=== PATIENT | female | born 1990 | race African-American/Black ===

== ENCOUNTER 2019-06-10 21:34 | Emergency (ER) | payer OTHER, SELFPAY ==
[2019-06-10] MEDS ORDERED: CYCLOBENZAPRINE 10 MG TAB ONE (23:22)
[2019-06-10] MEDS ORDERED: IBUPROFEN 400 MG TAB ONE (23:22)
[2019-06-10] MEDS ORDERED: ACETAMINOPHEN 325 MG TABLET ONE (23:22)
[2019-06-10 23:40] LABS: Urine Blood NEGATIVE (NEG); Urine Glucose NEGATIVE (NEG); Urine Protein NEGATIVE (NEG); Urine Specific Gravity 1.025 (1.005-1.030)
--- NOTE | 2019-06-10 23:46 | ER ---
Nurse's Notes [facility] Name: Elba Aragon Age: 29 yrs Sex: Female : 1990 Arrival Date: 06/10/2019 Time: 21:37 Bed 27 Private MD: Diagnosis: Other chest pain Presentation: 06/10 21:40 Presenting complaint: Pain to left back and left side that started an hour ago. Patient aj1 also reports shortness of breath, but states "I think that's just because I'm freaking out. I have a history of anxiety" Patient reports that she was carrying a car seat when the pain suddenly hit her. Transition of care: patient was not received from another setting of care. Onset of symptoms was June 10, 2019 at 20:45. Risk Assessment: Do you want to hurt yourself or someone else? Patient reports no desire to harm self or others. Initial Sepsis Screen: Does the patient meet any 2 criteria? No. Patient's initial sepsis screen is negative. Does the patient have a suspected source of infection? No. Patient's initial sepsis screen is negative. Care prior to arrival: None. 21:40 Method Of Arrival: Wheelchair aj1 21:40 Acuity: CELIA 4 aj1 Triage Assessment: 21:42 General: Appears uncomfortable, Behavior is cooperative, anxious. Pain: Complains of aj1 pain in left low back, left mid back and posterior aspect of left lateral abdomen. Neuro: Level of Consciousness is awake, alert, obeys commands. Cardiovascular: Patient's skin is warm and dry. Respiratory: Reports shortness of breath Airway is patent Respiratory effort is even, unlabored, Respiratory pattern is regular, symmetrical, Onset: The symptoms/episode began/occurred today, the patient reports symptoms have resolved. 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 - Social history:: Smoking status: Patient/guardian denies using tobacco. - Ebola Screening: : Patient denies travel to an Ebola-affected area in the 21 days before illness onset. Screenin:29 Abuse screen: Denies threats or abuse. Denies injuries from another. Nutritional mg2 screening: No deficits noted. Tuberculosis screening: No symptoms or risk factors identified. Fall Risk None identified. Assessment: 22:30 General: Appears in no apparent distress. comfortable, Behavior is calm, cooperative. mg2 Pain: Complains of pain in left mid back and left low back Pain does not radiate. Pain currently is 4 out of 10 on a pain scale. Quality of pain is described as aching, Pain began gradually, Is intermittent. Neuro: Level of Consciousness is awake, alert, obeys commands, Oriented to person, place, time, situation. Cardiovascular: Capillary refill < 3 seconds Patient's skin is warm and dry. Respiratory: Reports shortness of breath on exertion Airway is patent Respiratory effort is even, unlabored, Respiratory pattern is regular, symmetrical, Breath sounds are clear in mediastinum, right upper lobe and left upper lobe. GI: No signs and/or symptoms were reported involving the gastrointestinal system. : No signs and/or symptoms were reported regarding the genitourinary system. EENT: No signs and/or symptoms were reported regarding the EENT system. Derm: Skin is intact, is healthy with good turgor, Skin is pink, warm \\T\\ dry. normal. Musculoskeletal: Circulation, motion, and sensation intact. Capillary refill < 3 seconds, Reports pain in shoulder blade and left lateral area. 06/11 00:18 Cardiovascular: Rhythm is regular. mg2 Vital Signs: 06/10 21:42 BP 137 / 90; Pulse 82; Resp 18; Temp 97.7; Pulse Ox 100% on R/A; Weight 86.18 kg (R); aj1 Height 5 ft. 0 in. (152.40 cm) (R); Pain 10/10; 22:32 BP 116 / 83; Pulse 70; Resp 18; Pulse Ox 100% on R/A; mg2 06/11 00:17 BP 120 / 78; Pulse 71; Resp 18; Temp 98.5; Pulse Ox 100% on R/A; Pain 0/10; mg2 06/10 21:42 Body Mass Index 37.11 (86.18 kg, 152.40 cm) aj1 ED Course: 06/10 21:37 Patient arrived in ED. cl3 21:42 Triage completed. aj1 21:42 Arm band placed on. aj1 22:09 Enrique Zee, RN is Primary Nurse. mg2 22:32 Patient has correct armband on for positive identification. mg2 22:32 No provider procedures requiring assistance completed. Patient did not have IV access mg2 during this emergency room visit. 22:54 Guillaume Krishnamurthy PA is PHCP. cp 22:54 Vinny Edward MD is Attending Physician. cp 23:44 XRAY Chest Pa And Lat (2 Views) In Process Unspecified. EDMS Administered Medications: 23:26 Drug: Ibuprofen 800 mg Route: PO; 23:56 Follow up: Response: No adverse reaction; Marked relief of symptoms mg2 23:27 Drug: Tylenol 650 mg Route: PO; 23:55 Follow up: Response: No adverse reaction; Marked relief of symptoms mg2 23:27 Drug: Flexeril 10 mg Route: PO; 23:55 Follow up: Response: No adverse reaction; Marked relief of symptoms mg2 Outcome: 23:46 Discharge ordered by MD. cp 06/11 00:18 Discharged to home ambulatory, with family. mg2 Condition: stable Discharge instructions given to patient, family, Instructed on discharge instructions, follow up and referral plans. medication usage, Demonstrated understanding of instructions, follow-up care, medications, Prescriptions given X 2. 00:18 Patient left the ED. mg2 Signatures: Dispatcher [employer] EDMS Siri Petit RN RN aj1 Guillaume Krishnamurthy PA PA cp Sarah Prieto Enrique Zee, LULY RN mg2 Toro Rhodes cl3
--- NOTE | 2019-06-10 23:47 | EDPHYS ---
Physician Documentation [facility] Name: Elba Aragon Age: 29 yrs Sex: Female : 1990 Arrival Date: 06/10/2019 Time: 21:37 Bed 27 Private MD: ED Physician Vinny Edward HPI: 06/10 23:05 This 29 yrs old Black Female presents to ER via Wheelchair with complaints of Shortness cp Of Breath. 23:05 The patient or guardian reports chest pain that is located primarily in the left lower cp lateral chest wall. 23:05 The pain does not radiate. Associated signs and symptoms: Pertinent positives: cp shortness of breath. Duration: The patient or guardian reports a single episode, that is still ongoing. 23:05 The chest pain is described as aching. cp 23:05 Severity of pain: in the emergency department the pain is a 4 / 10. Patient reports she cp started having pain suddenly left lower lateral chest after picking up baby in car seat today. Pain worse with movement, deep inspiration. Denies trauma. 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 - Social history:: Smoking status: Patient/guardian denies using tobacco. - Ebola Screening: : Patient denies travel to an Ebola-affected area in the 21 days before illness onset. ROS: 23:10 Constitutional: Negative for body aches, chills, fever, poor PO intake. cp 23:10 Eyes: Negative for injury, pain, redness, and discharge. cp 23:10 Cardiovascular: Positive for chest pain, of the left lower lateral chest, Negative for cp edema, palpitations. 23:10 Neck: Negative for pain with movement, pain at rest, stiffness, tenderness. cp 23:10 Respiratory: Positive for shortness of breath, Negative for cough, wheezing. 23:10 Abdomen/GI: Negative for nausea, vomiting, and diarrhea, constipation. 23:10 Back: Positive for radiated pain. 23:10 : Negative for urinary symptoms. 23:10 Skin: Negative for rash. 23:10 Neuro: Negative for altered mental status, headache, numbness, weakness. 23:10 All other systems are negative. Exam: 23:20 Constitutional: The patient appears in no acute distress, alert, awake, cp non-diaphoretic, non-toxic, well developed, well nourished. 23:20 Head/Face: Normocephalic, atraumatic. cp 23:20 Eyes: Periorbital structures: appear normal, Conjunctiva: normal, no exudate, no cp injection, Lids and lashes: appear normal, bilaterally. 23:20 ENT: External ear(s): are unremarkable, Nose: is normal, Mouth: is normal, Posterior cp pharynx: Airway: no evidence of obstruction, patent. 23:20 Neck: ROM/movement: is normal, is supple, without pain, no range of motions limitations, no nuchal rigidity. 23:20 Chest/axilla: Inspection: normal, Palpation: crepitus, is not appreciated, tenderness, that is moderate, of the left lower lateral chest wall, that partially reproduces the patient's complaints. 23:20 Cardiovascular: Rate: normal, Rhythm: regular, Edema: is not appreciated, JVD: is not appreciated. 23:20 Respiratory: the patient does not display signs of respiratory distress, Respirations: labored breathing, is not present, intercostal retractions, are absent, shallow respirations, that is mild, Breath sounds: are clear throughout, no decreased breath sounds, no stridor, no wheezing. 23:20 Abdomen/GI: Inspection: abdomen appears normal, Palpation: abdomen is soft and non-tender, in all quadrants. 23:20 Skin: no rash present. 23:20 Neuro: Orientation: to person, place \T\ time. Mentation: is normal, Motor: moves all fours, strength is normal. Vital Signs: 21:42 BP 137 / 90; Pulse 82; Resp 18; Temp 97.7; Pulse Ox 100% on R/A; Weight 86.18 kg (R); aj1 Height 5 ft. 0 in. (152.40 cm) (R); Pain 10/10; 22:32 BP 116 / 83; Pulse 70; Resp 18; Pulse Ox 100% on R/A; mg2 06/11 00:17 BP 120 / 78; Pulse 71; Resp 18; Temp 98.5; Pulse Ox 100% on R/A; Pain 0/10; mg2 06/10 21:42 Body Mass Index 37.11 (86.18 kg, 152.40 cm) aj1 MDM: 06/10 22:58 Patient medically screened. cp 23:30 Differential diagnosis: chest wall pain, cholecystitis, Cholelithiasis costochondritis, cp pleurisy, pneumonia, pneumothorax, pulmonary embolus, intercostal strain. 23:45 Data reviewed: vital signs, nurses notes, radiologic studies, plain films. cp 23:45 Test interpretation: by ED physician or midlevel provider: plain radiologic studies, cp chest xray negative for infiltrates. Counseling: I had a detailed discussion with the patient and/or guardian regarding: the historical points, exam findings, and any diagnostic results supporting the discharge/admit diagnosis, radiology results, the need for outpatient follow up, a family practitioner, to return to the emergency department if symptoms worsen or persist or if there are any questions or concerns that arise at home. 06/10 23:35 Order name: Urine Dipstick--Ancillary (enter results); Complete Time: 23:44 em1 06/10 23:35 Order name: Urine --Ancillary (enter results); Complete Time: 23:44 em1 06/10 23:03 Order name: XRAY Chest Pa And Lat (2 Views) cp 06/10 23:03 Order name: Urine Dipstick-Ancillary (obtain specimen); Complete Time: 23:27 cp 06/10 23:03 Order name: Urine Test (obtain specimen); Complete Time: 23:27 cp Administered Medications: 23:26 Drug: Ibuprofen 800 mg Route: PO; 23:56 Follow up: Response: No adverse reaction; Marked relief of symptoms mg2 23:27 Drug: Tylenol 650 mg Route: PO; 23:55 Follow up: Response: No adverse reaction; Marked relief of symptoms mg2 23:27 Drug: Flexeril 10 mg Route: PO; 23:55 Follow up: Response: No adverse reaction; Marked relief of symptoms mg2 Disposition: 06/11 07:02 Co-signature as Attending Physician, Vinny Edward MD I agree with the assessment and tw4 plan of care. Disposition: 06/10/19 23:46 Discharged to Home. Impression: Other chest pain. - Condition is Stable. - Discharge Instructions: Chest Wall Pain. - Prescriptions for Naprosyn 500 mg Oral Tablet - take 1 tablet by ORAL route 2 times per day take with food; 30 tablet. Cyclobenzaprine 10 mg Oral Tablet - take 1 tablet by ORAL route every 8 hours As needed; 20 tablet. - Medication Reconciliation Form, Thank You Letter, Antibiotic Education, Prescription Opioid Use form. - Follow up: Private Physician; When: 1 - 2 days; Reason: Recheck today's complaints. - Problem is new. - Symptoms have improved. Signatures: Dispatcher [employer] EDSiri Rodríguez RN RN aj1 Guillaume Krishnamurthy PA PA Sarah Orozco Terrence, MD MD tw4 Enrique Zee RN RN mg2 Corrections: (The following items were deleted from the chart) 00:18 06/10 23:46 06/10/2019 23:46 Discharged to Home. Impression: Other chest pain. mg2 Condition is Stable. Forms are Medication Reconciliation Form, Thank You Letter, Antibiotic Education, Prescription Opioid Use. Follow up: Private Physician; When: 1 - 2 days; Reason: Recheck today's complaints. Problem is new. Symptoms have improved. cp
[2019-06-11 01:31] VITALS: O2SAT 100
[2019-06-11 01:35] VITALS: BP 120/78; TEMP 98.5
--- NOTE | 2019-06-11 09:18 | RAD REPORT ---
EXAM DESCRIPTION: RAD - Chest Pa And Lat (2 Views) - 06/10/2019 11:43 pm CLINICAL HISTORY: CHEST PAIN COMPARISON: None. TECHNIQUE: PA and lateral views of the chest were obtained. FINDINGS: The lungs are clear. Heart size is normal and central vasculature is within normal limit s. No pleural effusion or pneumothorax seen. No acute bony finding noted. No aortic abnormality. IMPRESSION: No acute cardiopulmonary process.
== END 2019-06-11 00:18 | disposition home or self-care (01) ==
LOC: ER 21:34
DX: R07.89 Other chest pain (principal)
CPT/HCPCS: 71046; 81003; 81025; 99283

== ENCOUNTER 2020-07-08 20:03 | Emergency (ER) | payer SELFPAY ==
[2020-07-08] MEDS ORDERED: KETOROLAC 30 MG/ML INJ ONE (20:36)
[2020-07-08 20:47] LABS: Absolute Lymphocytes (CBC) 4.8 K/uL (0.7-4.9); Basophils % 1.4 % (0-1.3); Hematocrit 36.4 % (36.0-45.0); Lymphocytes % 38.9 % (15.3-44.8); MPV 8.9 fL (7.6-11.3)
[2020-07-08 20:57] LABS: ALT/SGPT 23 U/L (12-78); AST/SGOT 11 U/L (15-37); Albumin 3.3 g/dL (3.4-5.0); Alkaline Phosphatase 74 U/L (45-117); BUN Blood Urea Nitrogen 12 mg/dL (7-18); Bicarbonate 26 mmol/L (21-32); Bilirubin Direct < 0.1 mg/dL (0-0.2); Bilirubin Total 0.2 mg/dL (0.2-1.0); Glucose Level 92 mg/dL (74-106); Lipase 112 U/L (73-393); Potassium 3.8 mmol/L (3.5-5.1); Protein, Total 7.7 g/dL (6.4-8.2); Sodium Level 140 mmol/L (136-145)
--- NOTE | 2020-07-08 22:34 | ER ---
Nurse's Notes [facility] Name: Elba Aragon Age: 30 yrs Sex: Female : 1990 Arrival Date: 07/08/2020 Time: 20:04 Bed 6 Private MD: Diagnosis: Upper abdominal pain, unspecified Presentation: 07/08 20:12 Chief complaint: Patient states: Epigastric/RUQ abd pain for 1 day. Coronavirus screen: ll1 Client denies travel out of the [place] in the last 14 days. At this time, the client does not indicate any symptoms associated with coronavirus-19. Ebola Screen: Patient denies travel to an Ebola-affected area in the 21 days before illness onset. Initial Sepsis Screen: Does the patient meet any 2 criteria? RR > 20 per min. No. Patient's initial sepsis screen is negative. Does the patient have a suspected source of infection? Yes: Acute abdominal pain. Risk Assessment: Do you want to hurt yourself or someone else? Patient reports no desire to harm self or others. Onset of symptoms was July 08, 2020. 20:12 Method Of Arrival: Ambulatory [facility] 20:12 Acuity: CELIA 3 ll1 Historical: - Allergies: 20:13 No Known Allergies; ll1 - PSHx: 20:13 None; ll1 - Immunization history:: Flu vaccine is not up to date. - Social history:: Smoking status: Patient denies any tobacco usage or history of. Screenin:34 Abuse screen: Denies threats or abuse. Nutritional screening: No deficits noted. jb4 Tuberculosis screening: No symptoms or risk factors identified. Fall Risk None identified. Assessment: 20:34 General: Appears in no apparent distress. uncomfortable, Behavior is calm, cooperative, jb4 appropriate for age. Pain: Complains of pain in right upper quadrant Pain does not radiate. Pain currently is 7 out of 10 on a pain scale. Quality of pain is described as burning, Pain began 1330 Is continuous. Neuro: Level of Consciousness is awake, alert, obeys commands, Oriented to person, place, time, situation. Cardiovascular: Patient's skin is warm and dry. Respiratory: Airway is patent Respiratory effort is even, unlabored, Respiratory pattern is regular, symmetrical. GI: Abdomen is non-distended, obese, Bowel sounds present X 4 quads. Abd is soft and non tender X 4 quads. : No signs and/or symptoms were reported regarding the genitourinary system. EENT: No signs and/or symptoms were reported regarding the EENT system. Derm: Skin is intact, Skin is dry, Skin is normal, Skin temperature is warm. Musculoskeletal: Circulation, motion, and sensation intact. Range of motion: intact in all extremities. 21:25 Reassessment: Patient appears in no apparent distress at this time. Patient and/or jb4 family updated on plan of care and expected duration. Pain level reassessed. Patient is alert, oriented x 3, equal unlabored respirations, skin warm/dry/pink. Pt is back from CT Patient states feeling better. Vital Signs: 20:12 BP 145 / 85; Pulse 82; Resp 22; Temp 97.8; Pulse Ox 100% ; Weight 86.18 kg; Height 5 ll1 ft. 0 in. (152.40 cm); Pain 9/10; 21:25 BP 113 / 76; Pulse 68; Resp 18; Pulse Ox 100% on R/A; Pain 0/10; jb4 22:24 BP 123 / 80; Pulse 66; Resp 16; Pulse Ox 100% ; Pain 0/10; rv 20:12 Body Mass Index 37.11 (86.18 kg, 152.40 cm) ll1 ED Course: 20:04 Patient arrived in ED. cl3 20:05 Dor[facility] Angel [facility]C [facility] kb 20:05 Guillaume Root MD is Attending Physician. kb 20:13 Triage completed. ll1 20:13 Arm band placed on Patient placed in an exam room, on a stretcher. ll1 20:27 Inserted saline lock: 22 gauge in right antecubital area, using aseptic technique. ds4 Blood collected. 20:28 Kevin Tompkins, LULY is Primary Nurse. jb4 20:34 Patient has correct armband on for positive identification. Bed in low position. Call jb4 light in reach. Side rails up X 1. Pulse ox on. NIBP on. 20:49 US Abdomen Limited In Process Unspecified. EDMS 21:14 CT Abd/Pelvis - IV Contrast Only In Process Unspecified. EDMS 22:42 No provider procedures requiring assistance completed. IV discontinued, intact, rv bleeding controlled, No redness/swelling at site. Pressure dressing applied. Administered Medications: 20:34 Drug: TORadol - Ketorolac 15 mg Route: IVP; Site: right antecubital; jb4 22:25 Follow up: Response: No adverse reaction; Pain is decreased rv Outcome: 22:34 Discharge ordered by . bernadette 22:42 Discharged to home ambulatory. rv 22:42 Condition: improved 22:42 Discharge instructions given to patient, Instructed on discharge instructions, follow up and referral plans. medication usage, Demonstrated understanding of instructions, follow-up care, medications, Prescriptions given X 3. 22:42 Patient left the ED. rv Signatures: Dispatcher [employer] EDMS Dorcas Angel, COAT IRONER HAND-C COAT IRONER HAND-Ckb Gabe Elkins ds4 Kevin Tompkins, RN RN jb4 Franck Lindsay, RN RN Toro Gibson cl3 Tati Rhodes RN RN ll1 Corrections: (The following items were deleted from the chart) 20:33 20:30 Inserted saline lock: 22 gauge in right antecubital area, using aseptic ds4 technique. Blood collected. ds4
--- NOTE | 2020-07-08 22:35 | EDPHYS ---
Physician Documentation [facility] Name: Elba Aragon Age: 30 yrs Sex: Female : 1990 Arrival Date: 07/08/2020 Time: 20:04 Bed 6 Private MD: MILAGROS Physician Guillaume Root HPI: 07/08 20:40 This 30 yrs old Black Female presents to ER via Ambulatory with complaints of Abdominal kb Pain. 20:40 The patient presents with abdominal pain in the right upper quadrant. Onset: The kb symptoms/episode began/occurred today. The symptoms do not radiate. Associated signs and symptoms: none. The symptoms are described as constant. Modifying factors: The symptoms are alleviated by nothing, the symptoms are aggravated by nothing. Severity of pain: At its worst the pain was moderate in the emergency department the pain is unchanged. The patient has not experienced similar symptoms in the past. The patient has not recently seen a physician. Pt reports RUQ pain that started at 1330 today. Historical: - Allergies: 20:13 No Known Allergies; ll1 - PSHx: 20:13 None; ll1 - Immunization history:: Flu vaccine is not up to date. - Social history:: Smoking status: Patient denies any tobacco usage or history of. ROS: 20:38 Constitutional: Negative for fever, chills, and weight loss, Cardiovascular: Negative kb for chest pain, palpitations, and edema, Respiratory: Negative for shortness of breath, cough, wheezing, and pleuritic chest pain, Back: Negative for injury and pain, MS/Extremity: Negative for injury and deformity, Skin: Negative for injury, rash, and discoloration, Neuro: Negative for headache, weakness, numbness, tingling, and seizure. 20:38 Abdomen/GI: Positive for abdominal pain, Negative for nausea, vomiting, and diarrhea, constipation, abdominal cramps, abdominal distension, anorexia. Exam: 20:38 Constitutional: This is a well developed, well nourished patient who is awake, alert, kb and in no acute distress. Head/Face: Normocephalic, atraumatic. Chest/axilla: Normal chest wall appearance and motion. Nontender with no deformity. No lesions are appreciated. Cardiovascular: Regular rate and rhythm with a normal S1 and S2. No gallops, murmurs, or rubs. Normal PMI, no JVD. No pulse deficits. Respiratory: Lungs have equal breath sounds bilaterally, clear to auscultation and percussion. No rales, rhonchi or wheezes noted. No increased work of breathing, no retractions or nasal flaring. Back: No spinal tenderness. No costovertebral tenderness. Full range of motion. Skin: Warm, dry with normal turgor. Normal color with no rashes, no lesions, and no evidence of cellulitis. MS/ Extremity: Pulses equal, no cyanosis. Neurovascular intact. Full, normal range of motion. Neuro: Awake and alert, GCS 15, oriented to person, place, time, and situation. Cranial nerves II-XII grossly intact. Motor strength 5/5 in all extremities. Sensory grossly intact. Cerebellar exam normal. Normal gait. 20:38 Abdomen/GI: Inspection: abdomen appears normal, Bowel sounds: normal, in all quadrants, Palpation: soft, in all quadrants, moderate abdominal tenderness, in the right upper quadrant. Vital Signs: 20:12 BP 145 / 85; Pulse 82; Resp 22; Temp 97.8; Pulse Ox 100% ; Weight 86.18 kg; Height 5 ll1 ft. 0 in. (152.40 cm); Pain 9/10; 21:25 BP 113 / 76; Pulse 68; Resp 18; Pulse Ox 100% on R/A; Pain 0/10; jb4 22:24 BP 123 / 80; Pulse 66; Resp 16; Pulse Ox 100% ; Pain 0/10; rv 20:12 Body Mass Index 37.11 (86.18 kg, 152.40 cm) ll1 MDM: 20:06 Patient medically screened. kb 20:37 Data reviewed: vital signs, nurses notes. Data interpreted: Pulse oximetry: on room air kb is 100 %. Interpretation: normal. 20:59 Counseling: I had a detailed discussion with the patient and/or guardian regarding: the kb historical points, exam findings, and any diagnostic results supporting the discharge/admit diagnosis, lab results, radiology results, the need for outpatient follow up, a family practitioner, to return to the emergency department if symptoms worsen or persist or if there are any questions or concerns that arise at home. 22:37 Special discussion: I discussed with the patient the need to follow-up with the PCP/specialist for the noted incidental finding on X-ray/CT scanning. 11/03 20:12 Order name: Basic Metabolic Panel; Complete Time: 20:59 kb 07/08 20:12 Order name: CBC with Diff; Complete Time: 20:52 kb 07/08 20:12 Order name: Hepatic Function; Complete Time: 20:59 kb 07/08 20:12 Order name: Lipase; Complete Time: 20:59 kb 07/08 20:12 Order name: US Abdomen Limited kb 07/08 21:00 Order name: CT Abd/Pelvis - IV Contrast Only kb 07/08 20:12 Order name: IV Saline Lock; Complete Time: 20:32 kb 07/08 20:12 Order name: Labs collected and sent; Complete Time: 20:32 kb Administered Medications: 20:34 Drug: TORadol - Ketorolac 15 mg Route: IVP; Site: right antecubital; jb4 22:25 Follow up: Response: No adverse reaction; Pain is decreased rv Disposition: 07/09 09:49 Co-signature as Attending Physician, Guillaume Root MD I agree with the assessment and lino plan of care. Disposition: 07/08/20 22:34 Discharged to Home. Impression: Upper abdominal pain, unspecified. - Condition is Stable. - Discharge Instructions: Biliary Colic, Adult, Abdominal Pain, Adult, [id number]. - Prescriptions for Bentyl 20 mg Oral Tablet - take 1 tablet by ORAL route every 6 hours As needed; 20 tablet. Protonix 40 mg Oral Tablet - take 1 tablet by ORAL route once daily; 30 tablet. Zofran 4 mg Oral Tablet - take 1 tablet by ORAL route every 6 hours As needed; 20 tablet. - Medication Reconciliation Form, Thank You Letter, Antibiotic Education, Prescription Opioid Use form. - Follow up: Emergency Department; When: As needed; Reason: Worsening of condition. Follow up: Private Physician; When: 2 - 3 days; Reason: Recheck today's complaints, Continuance of care, Re-evaluation by your physician. Signatures: Dispatcher [employer] EDDorcas Ponce, ASHLYN-C CUBING MACHINE TENDER-Guillaume Catalan MD MD cha Bryson, James, RN RN jb4 Franck Lindsay RN RN rv Tati Rhodes RN RN ll1 Corrections: (The following items were deleted from the chart) 07/08 22:42 22:34 07/08/2020 22:34 Discharged to Home. Impression: Upper abdominal pain, rv unspecified. Condition is Stable. Forms are Medication Reconciliation Form, Thank You Letter, Antibiotic Education, Prescription Opioid Use. Follow up: Emergency Department; When: As needed; Reason: Worsening of condition. Follow up: Private Physician; When: 2 - 3 days; Reason: Recheck today's complaints, Continuance of care, Re-evaluation by your physician. kb
[2020-07-08 22:49] VITALS: TEMP 97.8; O2SAT 100
[2020-07-08 22:52] VITALS: BP 123/80
--- NOTE | 2020-07-09 07:09 | RAD REPORT ---
EXAM DESCRIPTION: US - Abdomen Exam Limited - 07/08/2020 8:48 pm CLINICAL HISTORY: ABD PAIN COMPARISON: No comparisons FINDINGS: Gallbladder is tightly contracted. Patient was not fasting for the examination. Contracted state accentuates wall thickness. No stones or sludge identifiable. No pericholecystic fluid. Wall e brenda is not suspected. No common duct stone or biliary tree dilatation identified. Preliminary findings provided at the time of the study. IMPRESSION: Negative gallbladder and biliary tree finding and patient was not fasting. Gallbladder lumen assessment is limited; however, no abnormality seen and none suspected.
--- NOTE | 2020-07-09 12:28 | RAD REPORT ---
EXAM DESCRIPTION: CT - Abdomen Pelvis W Contrast - 07/09/2020 5:53 am CLINICAL HISTORY: 30-year-old female with abdominal pain. COMPARISON: None. TECHNIQUE: CT of the abdomen and pelvis was performed following intravenous administration of contra st. Oral contrast was not administered. Multiplanar reformatted images were provided. This exam was p erformed according to our departmental dose optimization program which includes use of automated expo sure control, adjustment of the mA and/or kV according to patient size and/or use of iterative recons truction technique. FINDINGS: Chest: Evaluation through the lung bases reveals no focal opacity, pleural effusion or pne umothorax. Small rounded subpleural pulmonary nodule is identified at the level of the lateral RIGHT lower lobe measuring 4 mm, (series 501, image three). Heart size is within normal limits. No pericard ial effusion. Abdomen and pelvis: The liver, gallbladder, pancreas, spleen, bilateral kidneys and bilateral adrenal glands are within normal limits. The vessels are patent and normal in caliber. No abdominopelvic lymph nodes are noted to be pathologically enlarged by CT measurement criteria. The bowel is within normal limits without abnormal bowel wall thickness or bowel dilation. No free air. No free abdominopelvic fluid collections. The appendix is within normal limits. The osseous structures are within normal limits. IMPRESSION: 1. No specific acute intra-abdominal findings are noted to suggest etiology of the patie nt's abdominal pain. 2. 4 mm subpleural pulmonary nodule. Electronically signed by: Genevieve Galan MD 07/08/2020 10:23 PM DIE CASTER Due to temporary technical issues with the PACS/Fluency reporting system, reports are being signed by the in house radiologists without review as a courtesy to insure prompt reporting. The interpreting radiologist is fully responsible for the content of the report.
== END 2020-07-08 22:42 | disposition home or self-care (01) ==
LOC: ER 20:03
DX: R10.11 Right upper quadrant pain (principal)
CPT/HCPCS: 36415; 74177; 76705; 80048; 80076; 83690; 85025; 96374; 99284; Q9967

== ENCOUNTER 2022-03-11 10:58 | Emergency (ER) | payer SELFPAY ==
--- NOTE | 2022-03-11 13:43 | ER ---
Nurse's Notes [facility] Name: Elba Aragon Age: 32 yrs Sex: Female : 1990 Arrival Date: 03/11/2022 Time: 11:02 Bed Waiting Private MD: Diagnosis: Presentation: 03/11 11:24 Chief complaint: Patient states: Abd pain/ cramping with diarrhea that began initially. ss Coronavirus screen: Client denies travel out of the [place] in the last 14 days. Ebola Screen: Patient denies exposure to infectious person. Patient denies travel to an Ebola-affected area in the 21 days before illness onset. Initial Sepsis Screen: Does the patient meet any 2 criteria? No. Patient's initial sepsis screen is negative. Does the patient have a suspected source of infection? No. Patient's initial sepsis screen is negative. Risk Assessment: Do you want to hurt yourself or someone else? Patient reports no desire to harm self or others. Onset of symptoms was March 11, 2022. 11:24 Method Of Arrival: Ambulatory ss 11:24 Acuity: CELIA 3 Historical: - Allergies: 11:25 No Known Allergies; ss - Home Meds: 11:25 None [Active]; ss - PMHx: 11:25 None; ss - PSHx: 11:25 None; ss - Immunization history:: Client reports having NOT received the Covid vaccine. - Social history:: Smoking status: Patient denies any tobacco usage or history of. Assessment: 13:21 [facility] Unable to locate patient. 13:40 Reassessment: Called to exam room. No answer. Unable to locate patient. ER registration ss staff reports that patient was seen walking out of ER with steady gait. NAD. Vital Signs: 11:24 BP 107 / 88; Pulse 83; Resp 16; Temp 98.1(TE); Pulse Ox 100% ; Weight 86.18 kg; Height ss 5 ft. 0 in. (152.40 cm); Pain 7/10; 11:24 Body Mass Index 37.11 (86.18 kg, 152.40 cm) ED Course: 11:02 Patient arrived in ED. rg4 11:13 Guillaume Toro DO is Attending Physician. ms3 11:25 Triage completed. ss 11:25 Arm band placed on right wrist. ss Administered Medications: No medications were administered Outcome: 13:41 Eloped from waiting room, after seeing physician ss 13:43 Patient left the ED. Signatures: Scarlet Dalton RN RN Bebe Enrique rg4 Guillaume Toro, DO TAYLOR ms3
[2022-03-11 15:12] VITALS: BP 107/88; TEMP 98.1; O2SAT 100
== END 2022-03-11 13:43 | disposition left against medical advice (07) ==
LOC: ER 10:58
DX: R10.9 Unspecified abdominal pain (principal); R19.7 Diarrhea, unspecified

== ENCOUNTER 2024-08-30 22:28 | Emergency (ER) | payer SELFPAY ==
--- OUTSIDE RECORDS SUMMARY | 2024-08-30 22:31 | XMS REPORT | Continuity of Care Document ---
Author Name Unknown Address [address] [facility] [address] [place] [address] [facility] thconnect Address [address] [facility]. 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 Role Phone PCP, PATIENT DOES NOT HAVE A Primary Care Physic alex Unavailable Sushila Danielle Attending Clinician + SUSHILA ROCHA Attending Clinician Unava ilable Unknown, Attending Attending Clinician Unavailab le Doctor Unassigned, [place] Attending Clinician U navailable Problems Condition Name Condition Details Condition Category Status Onset Date Resolution Date Last Treatment Date Treating Clinician Comments Source No known active problems No known active problems Disease [facility] Allergies, Adverse Reactions, Alerts Allergy Name Allergy Type Status Severity Reaction(s) Onset Date Inactive Date Treating Clinician Comments Source Penicill ins - CLASS Propensi ty to adverse reaction to drug Active 02-03 00:00: 00 Mario White NO KNOWN ALLERGIE S Drug Class Active [facility] Social History Social Habit Start Date Stop Date Quantity Comments Source Exposure to SARS-CoV-2 (event) Not sure [facility] Tobacco use and exposure 2021-08-25 00:00:00 2021-08-25 00:00:00 Never used [facility] Alcohol intake 2021-08-25 00:00:00 2021-08-25 00:00:00 Lifetime non-drinker (finding) [facility] Sex Assigned At 1990 00:00:00 1990 00:00:00 [facility] Smoking Status Start Date Stop Date Source Unknown if ever smoked [facility] Never smoker [facility] Medications Ordered Medication Name Filled Medication Name Start Date Stop Date Current Medication? Ordering Clinician Indication Dosage Frequency Signature (SIG) Comments Components Source montelukast 10 mg tablet 2023-09 00:00: 00 Yes 1mg Mario White triamcinolo ne acetonide 0.5 % topical cream 06-01 00:00: 00 Yes 1% Mario White cetirizine 10 mg tablet 06-01 00:00: 00 Yes 1mg Mario White TAKE 10 ML EVERY 4-6 HOURS NEEDED FOR COUGH AND CONGESTION 2022-09 00:00: 00 Yes [id number] Mario White USE 2 SPRAYS IN EACH NOSTRIL ONCE DAILY 2022-09 00:00: 00 Yes 50 Mario White naproxen 500 mg tablet 2020-09 00:00: 00 Yes [id number] 500mg Take 1 tablet by mouth every 8 (eight) hours as needed for Pain (scale 4-6). [facility] Vital Signs Vital Name Observation Time Observation Value Comments S ource Systolic blood pressure 2021-08-26 01:04:00 147 mm[Hg] [facility] Diastolic blood pressure 2021-08-26 01:04:00 88 mm[Hg] [facility] Heart rate 2021-08-26 01:02:00 73 /min [facility] Body temperature 2021-08-26 01:02:00 37.22 [facility] Respiratory rate 2021-08-26 01:02:00 18 /min [facility] Body height 2021-08-26 01:02:00 152.4 cm [facility] Body weight 2021-08-26 01:02:00 89.631 kg [facility] BMI 2021-08-26 01:02:00 38.59 kg/m2 [facility] Oxygen saturation in Arterial blood by Pulse oximetry 2021-08-26 01:02:00 99 /min [facility] BP Systolic 2024-08-17 14:32:00 135 mm[Hg] Step hen F Christopher BP Diastolic 2024-08-17 14:32:00 83 mm[Hg] Koko phen F Christopher Weight Measured 2024-08-17 14:32:00 207.00 pounds Mario F Christopher Height Measured 2024-08-17 14:32:00 60.00 inches Mario F Christopher Body Temperature 2024-08-17 14:32:00 98.20 degrees Mario F Christopher Heart Rate 2024-08-17 14:32:00 88.00 /min Valerie en F Christopher Respiratory Rate 2024-08-17 14:32:00 18.00 /min Mario F Christopher BP Systolic 2024-08-10 15:01:00 157 mm[Hg] Step hen F Christopher BP Diastolic 2024-08-10 15:01:00 90 mm[Hg] Koko phen F Christopher Weight Measured 2024-08-10 15:01:00 205.00 pounds Mario F Christopher Height Measured 2024-08-10 15:01:00 60.00 inches Mario F Christopher Body Temperature 2024-08-10 15:01:00 98.60 degrees Mario F Christopher Heart Rate 2024-08-10 15:01:00 75.00 /min Valerie en F Christopher Respiratory Rate 2024-08-10 15:01:00 Mario F Christopher Heart Rate 2024-07-27 14:28:00 74.00 /min Valerie en F Christopher Respiratory Rate 2024-07-27 14:28:00 16.00 /min Mario F Christopher BP Systolic 2024-07-27 14:28:00 125 mm[Hg] Step hen F Chrisotpher BP Diastolic 2024-07-27 14:28:00 84 mm[Hg] Koko phen F Christopher Weight Measured 2024-07-27 14:28:00 201.80 pounds Mario F Christopher Height Measured 2024-07-27 14:28:00 60.00 inches Mario F Christopher Body Temperature 2024-07-27 14:28:00 98.40 degrees Mario F Christopher Weight Measured 2024-06-01 15:57:00 196.00 pounds Mario F Christopher Height Measured 2024-06-01 15:57:00 60.00 inches Mario F Christopher Body Temperature 2024-06-01 15:57:00 97.90 degrees Mario F Christopher Heart Rate 2024-06-01 15:57:00 75.00 /min Valerie en F Christopher Respiratory Rate 2024-06-01 15:57:00 16.00 /min Mario F Christopher BP Systolic 2024-06-01 15:57:00 130 mm[Hg] Step hen F Christopher BP Diastolic 2024-06-01 15:57:00 85 mm[Hg] Koko phen F Christopher BP Systolic 2023-07-07 08:44:00 127 mm[Hg] Step hen F Christopher BP Diastolic 2023-07-07 08:44:00 77 mm[Hg] Koko phen F Christopher Weight Measured 2023-07-07 08:44:00 198.00 pounds Mario F Christopher Height Measured 2023-07-07 08:44:00 60.00 inches Mario F Christopher Body Temperature 2023-07-07 08:44:00 97.40 degrees Mario F Christopher Heart Rate 2023-07-07 08:44:00 83.00 /min Valerie en F Christopher Respiratory Rate 2023-07-07 08:44:00 Mario F Christopher BP Systolic 2023-02-03 14:06:00 138 mm[Hg] Step hen F Christopher BP Diastolic 2023-02-03 14:06:00 93 mm[Hg] Koko phen F Christopher Weight Measured 2023-02-03 14:06:00 198.80 pounds Mario F Christopher Height Measured 2023-02-03 14:06:00 60.00 inches Mario F Christopher Body Temperature 2023-02-03 14:06:00 98.40 degrees Mario F Christopher Heart Rate 2023-02-03 14:06:00 70.00 /min Valreie en F Christopher Respiratory Rate 2023-02-03 14:06:00 Mario F Christopher Encounters Start Date/Time End Date/Time Encounter Type Admission Type Attending [facility] Facility Care Department Encounter ID Source 2024-08-17 14:23:27 2024-08-17 14:23:27 Outpatient [facility] [id number] Mario F Christopher 2024-08-17 00:00:00 2024-08-17 00:00:00 Outpatient Visit [facility] [id number] Mario White 2024-08-10 00:00:00 2024-08-10 00:00:00 Outpatient Visit [facility] [id number] Mario White 2024-07-27 14:18:46 2024-07-27 14:18:46 Outpatient [facility] [id number] Mario White 2024-07-27 00:00:00 2024-07-27 00:00:00 Outpatient Visit [facility] [id number] Mario White 2024-06-08 16:13:17 2024-06-08 16:13:17 Outpatient [facility] [id number] Mario White 2024-06-01 15:47:38 2024-06-01 15:47:38 Outpatient [facility] [id number] Mario White 2024-06-01 00:00:00 2024-06-01 00:00:00 Outpatient Visit [facility] [id number] Mario White 2023-07-07 08:35:03 2023-07-07 08:35:03 Outpatient [facility] [id number] Mario White 2023-02-03 13:57:06 2023-02-03 13:57:06 Outpatient [facility] [id number] Mario White 2021-08-25 19:45:21 2021-08-25 23:59:00 Hospital Encounter Sushila Stephens [facility] [id number] [facility] 2021-08-25 19:00:00 2021-08-25 20:49:08 Outpatient R SUSHILA STEPHENS [facility] [id number] [facility] 2021-08-25 19:00:00 2021-08-25 20:49:08 Urgent Care Sushila Stephens Unknown, Attending [facility] [id number] [facility] 2021-08-25 00:00:00 2021-08-25 00:00:00 Letter (Out) Doctor Unassigned, [place] [facility] [id number] [facility] Results Test Description Test Time Test Comments Results Result Co mments Source PAP TEST, THINPREP, IMAGED REFLEX HPV HIGH RISK IF [id number] 00:00:00* Test Item Value Reference Range Interpretation Comme nts SOURCE: (test code = 8001) Unspecified SLIDES: (test code = 8011) 1 LMP: (test code = 8021) NOT GIVEN SPECIMEN ADEQUACY: (test code = 86122) (NOTE) INTERPRETATION: (test code = 09632) NILM/NO EPITH. ABNORMALITY;SEE BELOW BROACH GRINDER: (test code = 8101) SISI Galloway (ASCP) LOCATION: (test code = 59104) (NOTE) CPT: (test code = 8140) 31684 HPV HIGH RISK IF ASC/LSIL, THINPREP (test code = 68770) CRITERIA NOT MET PDFE (test code = PDFReport) PDF Mario WhiteCOMPREHENSIVE METABOLIC [id number] 06:18:51* Test Item Value Reference Range Interpretation Comme nts GLUCOSE (test code = 2217) 86 MG/DL 70-99 BUN (test code = 2208) 13 MG/DL 6-20 CREATININE (test code = 2214) 0.72 MG/DL 0.60-1.30 eGFR (2020 CKD-EPI) (test code = 67946) 112 ML/MIN/1.73 >60 CALC BUN/CREAT (test code = 2235) 18 RATIO 6-28 SODIUM (test code = 2231) 137 MEQ/L 133-146 POTASSIUM (test code = 2227) 4.6 MEQ/L 3.5-5.4 CHLORIDE (test code = 2214) 102 MEQ/L 95-107 CARBON DIOXIDE (test code = 2205) 23 MEQ/L 19-31 CALCIUM (test code = 2208) 9.9 MG/DL 8.5-10.5 PROTEIN, TOTAL (test code = 2228) 7.8 G/DL 6.1-8.3 ALBUMIN (test code = 2200) 4.2 G/DL 3.5-5.2 CALC GLOBULIN (test code = 2239) 3.6 G/DL 1.9-3.7 CALC A/G RATIO (test code = 2233) 1.2 RATIO 1.0-2.6 BILIRUBIN, TOTAL (test code = 2206) <0.2 MG/DL <=1.2 ALKALINE PHOSPHATASE (test code = 2203) 79 U/L 40-114 AST (test code = 2217) 14 U/L 9-40 ALT (test code = 2218) 12 U/L 5-40 LIPID [id number] 06:18:51* Test Item Value Reference Range Interpretation Comme nts CHOLESTEROL (test code = 2209) 137 MG/DL <200 TRIGLYCERIDES (test code = 2231) 106 MG/DL <150 HDL CHOLESTEROL (test code = 2219) 47 MG/DL >39 CALC LDL CHOL (test code = 2236) 71 MG/DL <100 NOTE: CALCULATED LDL IS BASED ON [place]-ALEXANDRE METHOD WHICHINCLUDES ADJUSTABLE TRIGLYCERIDE:VLDL CHOLESTEROL RATIO.THIS FACTOR VARIES BY MEASURED TRIGLYCERIDE AND NON-HDLCHOLESTEROL CONCENTRATIONS WITH INCREASED CALCULATED LDL SEENIN HIGHER TRIGLYCERIDE OR LOWER NON-HDL SPECIMENS. FOR MOREINFORMATION, SEE CLIENT ANNOUNCEMENT AT [email or web address] RISK RATIO LDL/HDL (test code = 2237) 1.51 RATIO <3.22 TSH, THIRD [id number] 06:17:37* Test Item Value Reference Range Interpretation Comme [facility] TSH, THIRD GENERATION (test code = 2821) 1.820 UIU/ML 0.400-4.100 HEMOGLOBIN [id number] 05:40:11* Test Item Value Reference Range Interpretation Comme [facility] HEMOGLOBIN A1c (test code = 41928) 5.5 % 4.2-5.6 UNLESS OTHERWISE INDICATED, ALL TESTING PERFORMED AT [facility] [address] [place] [address] GAMBLING MONITOR: MELINDA AMARO M.D. CLIA NUMBER [id number] [facility] [place]. [id number] CBC W/AUTO DIFF WITH [id number] 04:09:09* Test Item Value Reference Range Interpretation Comme nts WBC (test code = 1001) 11.9 K/UL 3.5-11.0 H RBC (test code = 1002) 4.20 M/UL 3.80-5.40 HEMOGLOBIN (test code = 1003) 12.3 G/DL 11.5-15.5 HEMATOCRIT (test code = 1004) 36.6 % 34.0-45.0 MCV (test code = 1005) 87.1 fL 80.0-99.0 MCH (test code = 1006) 29.3 PG 25.0-33.0 MCHC (test code = 1007) 33.6 G/DL 31.0-36.0 RDW (test code = 1038) 12.5 % 11.5-15.0 NEUTROPHILS (test code = 1008) 56.4 % LYMPHOCYTES (test code = 1010) 34.0 % MONOCYTES (test code = 1011) 6.7 % EOSINOPHILS (test code = 1012) 2.2 % BASOPHILS (test code = 1013) 0.4 % IMMATURE GRANULOCYTES (test code = 1036) 0.3 % NUCLEATED RBCS (test code = 1065) 0.0 /100 WBC'S See_Comment [Automated [employer]] The system which generated this result transmitted reference range: 0.0. The reference range was not used to interpret this result as normal/abnormal. PLATELET COUNT (test code = 1015) 375 K/UL 130-400 ABSOLUTE NEUTROPHILS (test code = 1066) 6.72 K/UL 1.50-7.50 ABSOLUTE LYMPHOCYTES (test code = 1067) 4.05 K/UL 1.00-4.00 H ABSOLUTE MONOCYTES (test code = 1068) 0.80 K/UL 0.20-1.00 ABSOLUTE EOSINOPHILS (test code = 1040) 0.26 K/UL 0.00-0.50 ABSOLUTE BASOPHILS (test code = 1069) 0.05 K/UL 0.00-0.20 ABS IMMATURE GRANULOCYTES (test code = 1020) 0.03 K/UL 0.00-0.10 ABS NUCLEATED RBCS (test code = 87222) 0.00 K/UL 0.00-0.11 CBC W/AUTO [id number] 00:00:00* Test Item Value Reference Range Interpretation Comme nts WBC (test code = 1001) 11.9 K/UL RBC (test code = 1002) 4.20 M/UL HEMOGLOBIN (test code = 1003) 12.3 G/DL HEMATOCRIT (test code = 1004) 36.6 % MCV (test code = 1005) 87.1 fL MCH (test code = 1006) 29.3 PG MCHC (test code = 1007) 33.6 G/DL RDW (test code = 1038) 12.5 % NEUTROPHILS (test code = 1008) 56.4 % LYMPHOCYTES (test code = 1010) 34.0 % MONOCYTES (test code = 1011) 6.7 % EOSINOPHILS (test code = 1012) 2.2 % BASOPHILS (test code = 1013) 0.4 % IMMATURE GRANULOCYTES (test code = 1036) 0.3 % NUCLEATED RBCS (test code = 1065) 0.0 /100WBC'S PLATELET COUNT (test code = 1015) 375 K/UL ABSOLUTE NEUTROPHILS (test c ode = 1066) 6.72 K/UL ABSOLUTE LYMPHOCYTES (test c ode = 1067) 4.05 K/UL ABSOLUTE MONOCYTES (test cod e = 1068) 0.80 K/UL ABSOLUTE EOSINOPHILS (test c ode = 1040) 0.26 K/UL ABSOLUTE BASOPHILS (test cod e = 1069) 0.05 K/UL ABS IMMATURE GRANULOCYTES (t est code = 1020) 0.03 K/UL ABS NUCLEATED RBCS (test cod e = 18584) 0.00 K/UL Mario F AustinCOMPREHENSIVE METABOLIC [id number] 00:00:00* Test Item Value Reference Range Interpretation Comme nts GLUCOSE (test code = 2217) 86 MG/DL BUN (test code = 2208) 13 MG/DL CREATININE (test code = 2214) 0.72 MG/DL eGFR (2020 CKD-EPI) (test code = 55742) 112 ML/MIN/1.73 CALC BUN/CREAT (test code = 2235) 18 RATIO SODIUM (test code = 2231) 137 MEQ/L POTASSIUM (test code = 2228) 4.6 MEQ/L CHLORIDE (test code = 2215) 102 MEQ/L CARBON DIOXIDE (test code = 2206) 23 MEQ/L CALCIUM (test code = 2209) 9.9 MG/DL PROTEIN, TOTAL (test code = 2229) 7.8 G/DL ALBUMIN (test code = 2201) 4.2 G/DL CALC GLOBULIN (test code = 2240) 3.6 G/DL CALC A/G RATIO (test code = 2234) 1.2 RATIO BILIRUBIN, TOTAL (test code = 2207) <0.2 MG/DL ALKALINE PHOSPHATASE (test code = 220) 79 U/L AST (test code = 2218) 14 U/L ALT (test code = 2219) 12 U/L Mario [id number] 00:00:00* Test Item Value Reference Range Interpretation Comme [facility] TSH, THIRD GENERATION (test code = 2821) 1.820 UIU/ML Mario WhiteLIPID [id number] 00:00:00* Test Item Value Reference Range Interpretation Comme nts CHOLESTEROL (test code = 2210) 137 MG/DL TRIGLYCERIDES (test code = 2232) 106 MG/DL HDL CHOLESTEROL (test code = 2220) 47 MG/DL CALC LDL CHOL (test code = 2237) 71 MG/DL RISK RATIO LDL/HDL (test cod e = 2238) 1.51 RATIO Mario WhiteHEMOGLOBIN [id number] 00:00:00* Test Item Value Reference Range Interpretation Comme carmina HEMOGLOBIN A1c (test code = 82808) 5.5 % Mario WhiteCBC W/AUTO [id number] 00:00:00* Test Item Value Reference Range Interpretation Comme nts WBC (test code = 1001) 11.9 K/UL RBC (test code = 1002) 4.20 M/UL HEMOGLOBIN (test code = 1003) 12.3 G/DL HEMATOCRIT (test code = 1004) 36.6 % MCV (test code = 1005) 87.1 fL MCH (test code = 1006) 29.3 PG MCHC (test code = 1007) 33.6 G/DL RDW (test code = 1038) 12.5 % NEUTROPHILS (test code = 1008) 56.4 % LYMPHOCYTES (test code = 1010) 34.0 % MONOCYTES (test code = 1011) 6.7 % EOSINOPHILS (test code = 1012) 2.2 % BASOPHILS (test code = 1013) 0.4 % IMMATURE GRANULOCYTES (test code = 1036) 0.3 % NUCLEATED RBCS (test code = 1065) 0.0 /100WBC'S PLATELET COUNT (test code = 1015) 375 K/UL ABSOLUTE NEUTROPHILS (test c ode = 1066) 6.72 K/UL ABSOLUTE LYMPHOCYTES (test c ode = 1067) 4.05 K/UL ABSOLUTE MONOCYTES (test cod e = 1068) 0.80 K/UL ABSOLUTE EOSINOPHILS (test c ode = 1040) 0.26 K/UL ABSOLUTE BASOPHILS (test cod e = 1069) 0.05 K/UL ABS IMMATURE GRANULOCYTES (t est code = 1020) 0.03 K/UL ABS NUCLEATED RBCS (test cod e = 53411) 0.00 K/UL Mario WhiteCOMPREHENSIVE METABOLIC [id number] 00:00:00* Test Item Value Reference Range Interpretation Comme nts GLUCOSE (test code = 2217) 86 MG/DL BUN (test code = 2208) 13 MG/DL CREATININE (test code = 2214) 0.72 MG/DL eGFR (2020 CKD-EPI) (test code = 00056) 112 ML/MIN/1.73 CALC BUN/CREAT (test code = 2235) 18 RATIO SODIUM (test code = 2231) 137 MEQ/L POTASSIUM (test code = 2228) 4.6 MEQ/L CHLORIDE (test code = 2215) 102 MEQ/L CARBON DIOXIDE (test code = 2206) 23 MEQ/L CALCIUM (test code = 2209) 9.9 MG/DL PROTEIN, TOTAL (test code = 2229) 7.8 G/DL ALBUMIN (test code = 2201) 4.2 G/DL CALC GLOBULIN (test code = 2240) 3.6 G/DL CALC A/G RATIO (test code = 2234) 1.2 RATIO BILIRUBIN, TOTAL (test code = 2207) <0.2 MG/DL ALKALINE PHOSPHATASE (test code = 2204) 79 U/L AST (test code = 2218) 14 U/L ALT (test code = 2219) 12 U/L Mario [id number] 00:00:00* Test Item Value Reference Range Interpretation Comme carmina TSH, THIRD GENERATION (test code = 2821) 1.820 UIU/ML Mario WhiteLIPID [id number] 00:00:00* Test Item Value Reference Range Interpretation Comme nts CHOLESTEROL (test code = 2210) 137 MG/DL TRIGLYCERIDES (test code = 2232) 106 MG/DL HDL CHOLESTEROL (test code = 2220) 47 MG/DL CALC LDL CHOL (test code = 2237) 71 MG/DL RISK RATIO LDL/HDL (test cod e = 2238) 1.51 RATIO Mario WhiteHEMOGLOBIN [id number] 00:00:00* Test Item Value Reference Range Interpretation Comme carmina HEMOGLOBIN A1c (test code = 73516) 5.5 % Mario WhiteCBC W/AUTO [id number] 00:00:00* Test Item Value Reference Range Interpretation Comme carmina WBC (test code = 1001) 11.9 K/UL RBC (test code = 1002) 4.20 M/UL HEMOGLOBIN (test code = 1003) 12.3 G/DL HEMATOCRIT (test code = 1004) 36.6 % MCV (test code = 1005) 87.1 fL MCH (test code = 1006) 29.3 PG MCHC (test code = 1007) 33.6 G/DL RDW (test code = 1038) 12.5 % NEUTROPHILS (test code = 1008) 56.4 % LYMPHOCYTES (test code = 1010) 34.0 % MONOCYTES (test code = 1011) 6.7 % EOSINOPHILS (test code = 1012) 2.2 % BASOPHILS (test code = 1013) 0.4 % IMMATURE GRANULOCYTES (test code = 1036) 0.3 % NUCLEATED RBCS (test code = 1065) 0.0 /100WBC'S PLATELET COUNT (test code = 1015) 375 K/UL ABSOLUTE NEUTROPHILS (test c ode = 1066) 6.72 K/UL ABSOLUTE LYMPHOCYTES (test c ode = 1067) 4.05 K/UL ABSOLUTE MONOCYTES (test cod e = 1068) 0.80 K/UL ABSOLUTE EOSINOPHILS (test c ode = 1040) 0.26 K/UL ABSOLUTE BASOPHILS (test cod e = 1069) 0.05 K/UL ABS IMMATURE GRANULOCYTES (t est code = 1020) 0.03 K/UL ABS NUCLEATED RBCS (test cod e = 43122) 0.00 K/UL Mario WhiteCOMPREHENSIVE METABOLIC [id number] 00:00:00* Test Item Value Reference Range Interpretation Comme nts GLUCOSE (test code = 2217) 86 MG/DL BUN (test code = 2208) 13 MG/DL CREATININE (test code = 2214) 0.72 MG/DL eGFR (2020 CKD-EPI) (test code = 21002) 112 ML/MIN/1.73 CALC BUN/CREAT (test code = 2235) 18 RATIO SODIUM (test code = 2231) 137 MEQ/L POTASSIUM (test code = 2228) 4.6 MEQ/L CHLORIDE (test code = 2215) 102 MEQ/L CARBON DIOXIDE (test code = 2206) 23 MEQ/L CALCIUM (test code = 2209) 9.9 MG/DL PROTEIN, TOTAL (test code = 2229) 7.8 G/DL ALBUMIN (test code = 2201) 4.2 G/DL CALC GLOBULIN (test code = 2240) 3.6 G/DL CALC A/G RATIO (test code = 2234) 1.2 RATIO BILIRUBIN, TOTAL (test code = 2207) <0.2 MG/DL ALKALINE PHOSPHATASE (test code = 2204) 79 U/L AST (test code = 2218) 14 U/L ALT (test code = 2219) 12 U/L Mario [id number] 00:00:00* Test Item Value Reference Range Interpretation Comme nts TSH, THIRD GENERATION (test code = 2821) 1.820 UIU/ML Mario WhiteLIPID [id number] 00:00:00* Test Item Value Reference Range Interpretation Comme nts CHOLESTEROL (test code = 2210) 137 MG/DL TRIGLYCERIDES (test code = 2232) 106 MG/DL HDL CHOLESTEROL (test code = 2220) 47 MG/DL CALC LDL CHOL (test code = 2237) 71 MG/DL RISK RATIO LDL/HDL (test cod e = 2238) 1.51 RATIO Mario WhiteHEMOGLOBIN [id number] 00:00:00* Test Item Value Reference Range Interpretation Comme nts HEMOGLOBIN A1c (test code = 09086) 5.5 % Mario Gallegos [id number] (COVID-19) by RT-PCR (HIGH RISK)2020-03-13 00:00:00* Test Item Value Reference Range Interpretation Comme nts SARS-CoV-2 INTERPRETATION (test code = 97460) NEGATIVE SOURCE (test code = 81138) NASOPHARYNGEAL Mario Gallegos [id number] (COVID-19) by RT-PCR (HIGH RISK)2020-03-13 00:00:00* Test Item Value Reference Range Interpretation Comme nts SARS-CoV-2 INTERPRETATION (test code = 63662) NEGATIVE SOURCE (test code = 31640) NASOPHARYNGEAL Mario Gallegos [id number] (COVID-19) by RT-PCR (HIGH RISK)2020-03-13 00:00:00* Test Item Value Reference Range Interpretation Comme nts SARS-CoV-2 INTERPRETATION (test code = 91919) NEGATIVE SOURCE (test code = 79458) NASOPHARYNGEAL Mario Gallegos [id number] (COVID-19) by RT-PCR (HIGH RISK)2020-03-13 00:00:00* Test Item Value Reference Range Interpretation Comme nts SARS-CoV-2 INTERPRETATION (test code = 30826) NEGATIVE SOURCE (test code = 08425) NASOPHARYNGEAL Mario White
[2024-08-30] MEDS ORDERED: ONDANSETRON 4 MG/2 ML VIAL ONE (22:58)
[2024-08-30] MEDS ORDERED: KETOROLAC 30 MG/ML INJ ONE (22:59)
[2024-08-30] MEDS ORDERED: NA CHLORIDE 0.9% 1,000 ML ONE (22:59)
[2024-08-30] MEDS ORDERED: MORPHINE 4 MG/ML SYR ONE (22:59)
[2024-08-30] MEDS ORDERED: FAMOTIDINE 20 MG/2 ML VIAL IV ONE (22:59)
[2024-08-30 23:49] LABS: Absolute Basophils 0.2 K/uL (0-0.5); Absolute Eosinophils 0.2 K/uL (0-0.5); Absolute Lymphocytes (CBC) 4.1 K/uL (0.7-4.9); Absolute Monocytes 0.8 K/uL (0.1-1.3); Absolute Neutrophil 7.4 K/uL (1.8-8.0); Basophils % 1.3 % (0-1.3); Eosinophils % 1.8 % (0-4.4); Hematocrit 38.2 % (36.0-45.0); Hemoglobin 12.2 g/dL (12.0-15.0); Lymphocytes % 32.5 % (15.3-44.8); MCH 27.7 pg (27.0-35.0); MCHC 31.9 g/dL (32.0-36.0); MCV 86.8 fL (80-100); Monocytes % 6.4 % (3.3-12.3); Platelets 376 thou/uL (152-406); Red Cell Distribution Width 13.4 % (12.1-15.2)
[2024-08-30 23:50] LABS: Albumin 3.1 g/dL (3.4-5.0); Albumin/Globulin Ratio 0.7 (1.1-1.8); Anion Gap 6.7 mEq/L (5.0-15.0); Bilirubin Total 0.2 mg/dL (0.2-1.0); Globulin 4.4 g/dL (2.3-3.5); Potassium 3.7 mEq/L (3.5-5.1); Protein, Total 7.5 g/dL (6.4-8.2)
--- NOTE | 2024-08-31 00:40 | RAD REPORT ---
PROCEDURE: US ABDOMEN LIMITED INDICATION: Abdominal pain. COMPARISON: CT abdomen pelvis performed on same day. TECHNIQUE: Grayscale, color and spectral Doppler ultrasound of the gallbladder was performed. FINDINGS: GALLBLADDER: No stones or sludge. No gallbladder wall thickening or pericholecystic fluid. Negative M urphy's sign. COMMON DUCT: The common duct measures 3.0 mm, within normal range. There is no evidence of choledocho lithiasis. OTHER: one. IMPRESSION: Negative gallbladder ultrasound. Electronically signed by: Toshia Sanford MD 08/31/2024 12:29 AM [facility] Due to temporary technical issues with the PACS/mth senseibe reporting system, reports are being signed by the in-house radiologist without review as a courtesy to ensure prompt reporting the interpreting radiologist is fully responsible for the content of the report. Transcribed Date/Time: 08/31/2024 12:39 AM
[2024-08-31 00:55] LABS: Specific Gravity 1.017 (1.005-1.030); Sqamous Epithelial <5 /HPF (None Seen); Urine Bacteria None Seen /HPF (<20); Urine Bilirubin NEGATIVE (Negative); Urine Blood 1+ (Negative); Urine Clarity Extremely Turbid (Clear); Urine Color Light-Yellow (Yellow); Urine Culture Reflex Order NOT NEEDED; Urine Glucose NEGATIVE (Negative); Urine Ketones NEGATIVE (Negative); Urine Microscopic Reflex YN ORDER UMIC; Urine Mucus Slight /HPF (None Seen); Urine Nitrite NEGATIVE (Negative); Urine Protein NEGATIVE (Negative); Urine Urobilinogen Normal (Normal); Urine WBC <5 /HPF (<5)
--- NOTE | 2024-08-31 03:29 | RAD REPORT ---
Clinical Indication: IV ONLY. Abdominal pain Comparison: July 08, 2020. TECHNIQUE: Helical imaging was performed from diaphragm through the pelvis after IV contrast administ ration with multiplanar reformations obtained. Coronal and sagittal reformats were performed and provided as separate series. IV CONTRAST: IV contrast dose was not provided. GI CONTRAST: GI contrast was not administered CT Radiation Dose: DLP = 1254.8 mGy-cm All CT scans at this location are performed using dose optimization techniques as appropriate to perf orm the study. Radiation dose reduction technique was utilized including one or more of the following: Automated exp osure control, adjustment of the mA and/or kV according to patient size and use of iterative reconstruction technique. FINDINGS: LOWER CHEST: The visualized lung bases are clear. LIVER: Unremarkable. GALLBLADDER: The gallbladder is somewhat contracted. INTRAHEPATIC BILE DUCT AND EXTRAHEPATIC BILE DUCT: Unremarkable. PANCREAS: Unremarkable. SPLEEN: Unremarkable. ADRENALS: Unremarkable. KIDNEYS AND URETERS: The renal contours are normal. There is no hydronephrosis. No calcified dee l stones are noted. No surrounding fat stranding is noted. STOMACH: Evaluation of the stomach and bowel is limited due to lack of oral contrast. No gross abno rmalities of the stomach are noted. BOWEL: The small bowel loops in the abdomen and pelvis appear unremarkable. The colonic loops in the abdomen and pelvis appear unremarkable. APPENDIX: The appendix is normal in caliber without surrounding inflammatory changes. PERITONEUM AND RETROPERITONEUM: No ascites or free air. No loculated fluid collection is noted. The re is no aortic aneurysm or dissection. PELVIS: The uterus and adnexa are unremarkable. BLADDER: The urinary bladder is relatively decompressed. LYMPH NODES: Unremarkable. OSSEOUS STRUCTURES: No acute abnormality seen. SOFT TISSUES: Unremarkable. IMPRESSION: 1. No acute abnormality of the abdomen or pelvis is noted. Electronically signed by: Tres Merritt MD 08/31/2024 03:00 AM [facility] Due to temporary technical issues with the PACS/Timeliner reporting system, reports are being sondra d by the in-house radiologist without review as a courtesy to ensure prompt reporting the interpreting radiologist is fully responsible for the content of the report. Transcribed Date/Time: 08/31/2024 3:29 AM
--- NOTE | 2024-08-31 03:31 | ER ---
Nurse's Notes [facility] Name: Elba Aragon Age: 34 yrs Sex: Female : 1990 Arrival Date: 08/30/2024 Time: 22:28 Bed 8 Private MD: Diagnosis: Acute epigastric abdominal pain , acute gastritis Presentation: 08/30 22:41 Chief complaint: Patient states: c/o upper abdominal pain that started before she ate me1 dinner tonight. Pain is burning, 04/14. Coronavirus screen: Vaccine status: Patient reports being unvaccinated. Ebola Screen: No symptoms or risks identified at this time. Initial Sepsis Screen: Does the patient meet any 2 criteria? No. Patient's initial sepsis screen is negative. Risk Assessment: Do you want to hurt yourself or someone else? Patient reports no desire to harm self or others. Onset of symptoms was August 30, 2024 at 17:30. 22:41 Method Of Arrival: Ambulatory [facility] 22:41 Acuity: CELIA 3 [facility] 08/31 03:56 Initial Sepsis Screen: Does the patient have a suspected source of infection? No. ay Patient's initial sepsis screen is negative. 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 - Infectious Disease History:: Denies. - Social history:: Smoking status: Patient denies any tobacco usage or history of. - Family history:: not pertinent. Screenin:00 [facility] ED Fall Risk Assessment (Adult) History of falling in the last 3 months, ay including since admission No falls in past 3 months (0 pts) Confusion or Disorientation No (0 pts) Intoxicated or Sedated No (0 pts) Impaired Gait No (0 pts) Mobility Assist Device Used No (0 pt) Altered Elimination No (0 pt) Score/Fall Risk Level 0 - 2 = Low Risk Oriented to surroundings, Maintained a safe environment, Educated pt \T\ family on fall prevention, incl call for assistance when getting out of bed. Abuse screen: Denies threats or abuse. Denies injuries from another. Nutritional screening: No deficits noted. Tuberculosis screening: No symptoms or risk factors identified. Assessment: 23:00 General: Appears in no apparent distress. uncomfortable, Behavior is calm, cooperative. ay Pain: Complains of pain in epigastric Pain does not radiate. Pain currently is 8 out of 10 on a pain scale. Quality of pain is described as dull. Neuro: Level of Consciousness is awake, alert, Oriented to person, place, time, situation, Speech is normal. 23:00 Cardiovascular: Heart tones S1 S2 Capillary refill < 3 seconds. Respiratory: Airway is ay patent Respiratory effort is even, unlabored, Respiratory pattern is regular, symmetrical. GI: Bowel sounds present X 4 quads. Abd is soft X 4 quads Abdomen is tender to palpation in epigastric. : No signs and/or symptoms were reported regarding the genitourinary system. EENT: No signs and/or symptoms were reported regarding the EENT system. Derm: No signs and/or symptoms reported regarding the dermatologic system. Musculoskeletal: No signs and/or symptoms reported regarding the musculoskeletal system. 23:46 Reassessment: Patient appears in no apparent distress at this time. Patient denies pain ay at this time. 08/31 01:36 Reassessment: Patient appears in no apparent distress at this time. Patient is alert, ay oriented x 3, equal unlabored respirations, skin warm/dry/pink. Patient denies pain at this time. Vital Signs: 08/30 22:41 BP 172 / 97; Pulse 69; Resp 17; Temp 98.7; Pulse Ox 100% ; Weight 92.99 kg; Height 5 me1 ft. 0 in. ; Pain 8/; 23:25 BP 167 / 96; Pulse 82; Resp 18; Temp 98.7; Pulse Ox 99% ; bm8 08/31 01:37 BP 129 / 84; Pulse 73; Resp 20; Pulse Ox 98% on R/A; ay 03:24 BP 116 / 78; Pulse 72; Resp 18; Pulse Ox 100% ; cp4 08/30 22:41 Body Mass Index 40.04 (92.99 kg, 152.4 cm) me1 08/30 22:41 Pain Scale: Adult me1 Nunu Coma Score: 08/30 23:00 Eye Response: spontaneous(4). Motor Response: obeys commands(6). Verbal Response: ay oriented(5). Total: 15. 08/31 03:26 Eye Response: spontaneous(4). Motor Response: obeys commands(6). Verbal Response: sp4 oriented(5). Total: 15. ED Course: 08/30 22:30 Patient arrived in ED. mr 22:37 Bernard Cancino MD is Attending Physician. sp4 22:43 Triage completed. me1 22:43 Arm band placed on Patient placed in an exam room. me1 22:55 Sherman Roman, LULY is Primary Nurse. ay 23:00 Patient has correct armband on for positive identification. Bed in low position. Call ay light in reach. Side rails up X2. Adult w/ patient. Provided Education on: plan of care. 23:01 Inserted saline lock: 20 gauge in right antecubital area, using aseptic technique. bm8 Blood collected. Flushed with 10 mL NS. 23:26 US Abdomen Limited In Process Unspecified. EDMS 23:47 Door closed. Noise minimized. Lights dimmed. Warm blanket given. ay 08/31 00:16 CT Abd/Pelvis - IV Contrast Only In Process Unspecified. EDMS 00:19 Urinalysis w/ reflexes Sent. ay 03:54 No provider procedures requiring assistance completed. IV discontinued, intact, ay bleeding controlled, No redness/swelling at site. Pressure dressing applied. Administered Medications: 08/30 23:11 Drug: morphine IVP or IV 4 mg IVP once over 4 mins Route: IVP; Infused Over: 4 mins; ay Site: right antecubital; 08/31 00:18 Follow up: Response: No adverse reaction; Pain is decreased ay 08/30 23:11 Drug: Ketorolac IVP 30 mg IVP once Route: IVP; Site: right antecubital; ay 08/31 00:17 Follow up: Response: No adverse reaction; Pain is decreased ay 08/30 23:11 Drug: NS 0.9% IV 1000 ml IV at 1 bolus Per protocol; to be given as a bolus over 60 ay minutes Route: IV; Rate: 1 bolus; Site: right antecubital; 08/31 00:19 Follow up: Response: No adverse reaction ay 08/30 23:12 Drug: Ondansetron IVP 4 mg IVP once; over 2 minutes Route: IVP; Site: right antecubital;ay 08/31 00:18 Follow up: Response: No adverse reaction; Nausea is decreased ay 08/30 23:12 Drug: Famotidine IVP 20 mg IVP once; dilute with 10 mL 0.9% NaCl; give over 2 minutes ay Route: IVP; Site: right antecubital; 08/31 00:18 Follow up: Response: No adverse reaction ay Medication: 08/30 23:00 VIS not applicable for this client. ay Outcome: 08/31 03:30 Discharge ordered by . sp4 03:54 Condition: stable ay 03:54 Discharge instructions given to patient, Instructed on discharge instructions, follow up and referral plans. medication usage, Demonstrated understanding of instructions, follow-up care, medications, Prescriptions given X 3, 03:56 Discharged to home ambulatory, ay 03:56 Patient left the ED. ay Signatures: Dispatcher [employer] [facility] Dana Maddox, Bernard Thomas MD MD sp4 Radah Cisneros, RN RN fl1 Samaria Jett 4 Skyler Austin, RN RN bm8 Sherman Roman, RN RN ay
--- NOTE | 2024-08-31 03:31 | EDPHYS ---
Physician Documentation [facility] Name: Elba Aragon Age: 34 yrs Sex: Female : 1990 Arrival Date: 08/30/2024 Time: 22:28 Bed 8 Private MD: ED Physician Bernard Cancino HPI: 08/31 02:11 This 34 yrs old Black Female presents to ER via Ambulatory with complaints of Abdominal sp4 Pain. 02:11 Epigastric abdominal pain. sp4 03:26 34-year-old female presents with complaint epigastric abdominal pain and upper sp4 abdominal pain sudden onset 2 hours prior to arrival. No nausea vomiting or diarrhea. 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 - Infectious Disease History:: Denies. - Social history:: Smoking status: Patient denies any tobacco usage or history of. - Family history:: not pertinent. ROS: 08/31 03:26 Constitutional: Negative for fever, chills, and weight loss, positive upper abdominal sp4 pain, positive epigastric pain All other systems are negative, Exam: 03:26 Constitutional: This is a well developed, well nourished patient who is awake, alert, sp4 and in no acute distress. Head/Face: Normocephalic, atraumatic. Eyes: Pupils equal round and reactive to light, extra-ocular motions intact. Lids and lashes normal. Conjunctiva and sclera are not injected. Cornea within normal limits. Periorbital areas with no swelling, redness, or edema. ENT: Nares patent. No nasal discharge, no septal abnormalities noted. Tympanic membranes are normal and external auditory canals are clear. Oropharynx with no redness, swelling, or masses, exudates, or evidence of obstruction, uvula midline. Mucous membranes moist. Neck: Trachea midline, no thyromegaly or masses palpated, and no cervical lymphadenopathy. Supple, full range of motion without nuchal rigidity, or vertebral point tenderness. Chest/axilla: Normal chest wall appearance and motion. Nontender with no deformity. No lesions are appreciated. Cardiovascular: Regular rate and rhythm with a normal S1 and S2. No gallops, murmurs, or rubs. Normal PMI, no JVD. No pulse deficits. Respiratory: Lungs have equal breath sounds bilaterally, clear to auscultation and percussion. No rales, rhonchi or wheezes noted. No increased work of breathing, no retractions or nasal flaring. Abdomen/GI: Soft, with normal bowel sounds. No distension or tympany. No guarding or rebound. No evidence of tenderness throughout. Back: No spinal tenderness. No costovertebral tenderness. Skin: Warm, dry with normal turgor. Normal color with no rashes, no lesions, and no evidence of cellulitis. MS/ Extremity: Pulses equal, no cyanosis. Neurovascular intact. Full, normal range of motion. Neuro: Awake and alert, GCS 15, oriented to person, place, time, and situation. Cranial nerves II-XII grossly intact. Motor strength 5/5 in all extremities. Sensory grossly intact. Psych: Awake, alert, with orientation to person, place and time. Behavior, mood, and affect are within normal limits Vital Signs: 08/30 22:41 BP 172 / 97; Pulse 69; Resp 17; Temp 98.7; Pulse Ox 100% ; Weight 92.99 kg; Height 5 me1 ft. 0 in. ; Pain 8/10; 23:25 BP 167 / 96; Pulse 82; Resp 18; Temp 98.7; Pulse Ox 99% ; bm8 08/31 01:37 BP 129 / 84; Pulse 73; Resp 20; Pulse Ox 98% on R/A; ay 03:24 BP 116 / 78; Pulse 72; Resp 18; Pulse Ox 100% ; cp4 08/30 22:41 Body Mass Index 40.04 (92.99 kg, 152.4 cm) me1 08/30 22:41 Pain Scale: Adult me1 Nunu Coma Score: 08/30 23:00 Eye Response: spontaneous(4). Motor Response: obeys commands(6). Verbal Response: ay oriented(5). Total: 15. 08/31 03:26 Eye Response: spontaneous(4). Motor Response: obeys commands(6). Verbal Response: sp4 oriented(5). Total: 15. MDM: 08/30 22:37 Medical Screening Exam initiated sp4 08/31 02:25 ED course: PROCEDURE: US ABDOMEN LIMITED INDICATION: Abdominal pain. COMPARISON: CT sp4 abdomen pelvis performed on same day. TECHNIQUE: Grayscale, color and spectral Doppler ultrasound of the gallbladder was performed. FINDINGS: GALLBLADDER: No stones or sludge. No gallbladder wall thickening or pericholecystic fluid. Negative Payton's sign. COMMON DUCT: The common duct measures 3.0 mm, within normal range. There is no evidence of choledocholithiasis. OTHER:None. IMPRESSION: Negative gallbladder ultrasound.. 03:22 ED course: Clinical Indication: IV ONLY. Abdominal pain Comparison: July 08, 2020. sp4 TECHNIQUE: Helical imaging was performed from diaphragm through the pelvis after IV contrast administration with multiplanar reformations obtained. Coronal and sagittal reformats were performed and provided as separate series. IV CONTRAST: IV contrast dose was not provided. GI CONTRAST: GI contrast was not administered CT Radiation Dose: DLP = 1254.8 mGy-cm All CT scans at this location are performed using dose optimization techniques as appropriate to perform the study. Radiation dose reduction technique was utilized including one or more of the following: Automated exposure control, adjustment of the mA and/or kV according to patient size and use of iterative reconstruction technique. FINDINGS: LOWER CHEST: The visualized lung bases are clear. LIVER: Unremarkable. GALLBLADDER: The gallbladder is somewhat contracted. INTRAHEPATIC BILE DUCTAND EXTRAHEPATIC BILE DUCT: Unremarkable. PANCREAS: Unremarkable. SPLEEN: Unremarkable. ADRENALS: Unremarkable. KIDNEYS AND URETERS: The renal contours are normal. There is no hydronephrosis. No calcified renal stones are noted. No surrounding fat stranding is noted. STOMACH: Evaluation of the stomach and bowel is limited due to lack of oral contrast. No gross abnormalities of the stomach are noted. BOWEL: The small bowel loops in the abdomen and pelvis appear unremarkable. The colonic loops in the abdomen and pelvis appear unremarkable. APPENDIX: The appendix is normal in caliber without surrounding inflammatory changes. PERITONEUM AND RETROPERITONEUM: No ascites or free air. No loculated fluid collection is noted. There is no aortic aneurysm or dissection. PELVIS: The uterus and adnexa are unremarkable. BLADDER: The urinary bladder is relatively decompressed. LYMPH NODES: Unremarkable. OSSEOUS STRUCTURES: No acute abnormality seen. SOFT TISSUES: Unremarkable. IMPRESSION: Contrast 1. No acute abnormality of the abdomen or pelvis is noted.. 03:26 Differential diagnosis: bowel obstruction, coronary artery disease, cholecystitis, sp4 Cholelithiasis, diverticulitis. Data reviewed: vital signs, nurses notes, lab test result(s), EKG, radiologic studies, CT scan, ultrasound. Consideration of Admission/Observation Escalation of care including admission/observation considered. ED course: Workup today is unremarkable. Patient stable for discharge home with symptomatic medications will recommend clear liquid diet for 24 hours.. 08/30 22:37 Order name: CBC with Diff; Complete Time: 00:29 sp4 08/30 22:37 Order name: CMP; Complete Time: 00: sp4 08/30 22:37 Order name: Lipase; Complete Time: 00:29 sp4 08/30 22:37 Order name: Urinalysis w/ reflexes; Complete Time: 02: sp4 08/30 23:03 Order name: Test, Serum; Complete Time: 00:29 bm8 08/30 22:43 Order name: CT Abd/Pelvis - IV Contrast Only sp4 08/30 22:43 Order name: US Abdomen Limited 4 08/30 22:37 Order name: IV Saline Lock; Complete Time: 23:11 sp4 08/30 22:37 Order name: Labs collected and sent; Complete Time: 23:11 sp4 08/30 22:43 Order name: NPO; Complete Time: 23:11 sp4 Administered Medications: 08/30 23:11 Drug: morphine IVP or IV 4 mg IVP once over 4 mins Route: IVP; Infused Over: 4 mins; ay Site: right antecubital; 08/31 00:18 Follow up: Response: No adverse reaction; Pain is decreased ay 08/30 23:11 Drug: Ketorolac IVP 30 mg IVP once Route: IVP; Site: right antecubital; ay 08/31 00:17 Follow up: Response: No adverse reaction; Pain is decreased ay 08/30 23:11 Drug: NS 0.9% IV 1000 ml IV at 1 bolus Per protocol; to be given as a bolus over 60 ay minutes Route: IV; Rate: 1 bolus; Site: right antecubital; 08/31 00:19 Follow up: Response: No adverse reaction ay 08/30 23:12 Drug: Ondansetron IVP 4 mg IVP once; over 2 minutes Route: IVP; Site: right antecubital;ay 08/31 00:18 Follow up: Response: No adverse reaction; Nausea is decreased ay 08/30 23:12 Drug: Famotidine IVP 20 mg IVP once; dilute with 10 mL 0.9% NaCl; give over 2 minutes ay Route: IVP; Site: right antecubital; 08/31 00:18 Follow up: Response: No adverse reaction ay Disposition Summary: 08/31/24 03:30 Discharge Ordered Notes: Location: Home sp4 Problem: new sp4 Symptoms: have improved sp4 Condition: Stable sp4 Diagnosis - Acute epigastric abdominal pain , acute gastritis sp4 Followup: sp4 - With: Private Physician - When: As needed - Reason: Discharge Instructions: - Discharge Summary Sheet sp4 - Clear Liquid Diet, Adult, [id number] sp4 Forms: - Patient Portal Instructions sp4 Prescriptions: - naproxen 500 mg Oral tablet - take 1 tablet ORAL route every 12 hours PRN pain; 50 tablet; Refills: 0, sp4 Product Selection Permitted - Pepcid 20 mg Oral tablet - take 1 tablet ORAL route every 12 hours for 30 days for 30 days; 60 tablet; sp4 Refills: 0, Product Selection Permitted - ondansetron 8 mg Oral Tablet,disintegrating - take 1 tablet ORAL route every 8 hours PRN nausea; 30 tablet; Refills: 0, sp4 Product Selection Permitted Signatures: Dispatcher [employer] EDBernard Weinstein MD MD sp4 Radha Cisneros, RN RN me1 Sherman Roman RN RN ay Corrections: (The following items were deleted from the chart) 08/30 22:43 22:43 Abdomen Limited+US.RAD.BRZ ordered. EDMS EDMS 23:17 22:38 Test, Urine+UC.LAB.BRZ ordered. EDMS EDMS
[2024-08-31 04:00] VITALS: TEMP 98.7
[2024-08-31 04:06] VITALS: BP 116/78; O2SAT 100
== END 2024-08-31 03:56 | disposition home or self-care (01) ==
LOC: ER 22:28
DX: K29.00 Acute gastritis without bleeding (principal)
CPT/HCPCS: 36415; 74177; 76705; 80053; 81001; 83690; 84703; 85025; 96374; 96375; 99284; J2405; J7030; Q9967